=== PATIENT | female | born 1990 | race Caucasian/White ===

== ENCOUNTER 2017-06-09 09:59 | Emergency (ER) | payer MEDICAID, OTHER ==
[~2017-06-09] VITALS: Ht 165.1 cm; Wt 118.2 kg
[~2017-06-09 09:59] MED LIST: CITA20TA9 PO
[2017-06-09 12:15] VITALS: BP 143/88
[2017-06-09] MEDS ORDERED: IBUPROFEN 800 MG TABLET PO ONE (13:00)
== END 2017-06-09 13:00 | disposition home or self-care (01) ==
LOC: EMS 10:01
DX: S00.83XA Contusion of other part of head, initial encounter (principal); J30.9 Allergic rhinitis, unspecified; W22.8XXA Striking against or struck by other objects, initial encounter; Y93.01 Activity, walking, marching and hiking; Y92.89 Other specified places as the place of occurrence of the external cause; Y99.8 Other external cause status
CPT/HCPCS: 99282